=== PATIENT | female | born 1980 | race Caucasian/White ===

== ENCOUNTER 2016-12-03 15:51 | Emergency (ER) | payer OTHER, BC ==
[~2016-12-03] VITALS: Ht 162.6 cm; Wt 119.2 kg
[~2016-12-03 15:51] MED LIST: DILAUDID2 MG PO; IBUPROFEN800 MG PO; PRENATAL TABLE1 EAC3 PO; VITRON-C TABLE1 EACH PO
[2016-12-03] MEDS ORDERED: VALIUM5 MG PO (17:33)
[2016-12-03] MEDS ORDERED: MOTRIN800 MG PO (17:33)
[2016-12-03] MEDS ORDERED: ULTRACET1 TABLET PO (17:33)
[2016-12-03 17:55] VITALS: BP 135/81
== END 2016-12-03 17:56 | disposition home or self-care (01) ==
LOC: EME 15:51
DX: S16.1XXA Strain of muscle, fascia and tendon at neck level, initial encounter (principal); V49.40XA Driver injured in collision with unspecified motor vehicles in traffic accident, initial encounter
CPT/HCPCS: 72040; 99281; 99283